=== PATIENT | female | born 1965 ===

== ENCOUNTER 2016-10-26 13:19 | Emergency (ER) | payer MEDICAID ==
[2016-10-26 13:20] VITALS: BMI 44.8
[2016-10-26 13:31] VITALS: RESP 16; TEMP 97.6; O2SAT 100
--- NOTE | 2016-10-26 14:52 | ED PDOC ---
HPI: General Adult Time Seen by Provider: 10/26/16 13:34 Chief Complaint (Nursing): Flu-like Symptoms Chief Complaint (Provider): Joint Pain History Per: Patient History/Exam Limitations: no limitations Onset/Duration Of Symptoms: Days (pain has worsened over the past x3-4 weeks), Intermittent Episodes (persistent for several years) Have you had recent travel within the past 21 days to any of the following countries: [place], [place], [place] or [place]?: No Current Symptoms Are (Timing): Still Present Severity: Moderate Location: shoulders, elbows, and lower back Similar Symptoms Previously: symptoms have been intermittently persistent for several years Recent Trauma: none Additional Complaint(s): Madie Chao is a 51 year old female, with a past medical history of arthritis and hypertension, who presents to the emergency department for the evaluation of chronic joint pain, that the patient has been experiencing intermittently for the past several years. The symptoms have worsened over the past 3 to 4 weeks, prompting her visit to the emergency department. Patient reports pain is greatest in her shoulders, elbows, and lower back. Has previously seen Dr. Patel, a embossed or impressed lettering painter, who prescribed her Percocet for pain (last prescription was given on 09/05/2016); however, she ran out and has since then reportedly been feeling worse. Associated myalgia ("body aches"), a headache, cough, congestion, and chills have also been present for the past 4 days. Denies recent trauma, incontinence, hematuria, dysuria, chest pain, a fever, or abdominal pain. Of note, pain is reported to be consistent with her previous intermittently occurring episodes in the past. Patient is scheduled to see her new embossed or impressed lettering painter, Dr. Foley, on Saturday, but would like medication for her pain prior to being discharged from the ED. PMD: Nikolay Santacruz Jr. Past Medical History Reviewed: Historical Data, Nursing Documentation, Vital Signs Vital Signs: Last Vital Signs Temp 97.6 F 10/26/16 13:22 Pulse 75 10/26/16 15:38 Resp 16 10/26/16 13:22 BP 117/69 10/26/16 15:38 Pulse Ox 100 10/26/16 15:26 - Medical History PMH: Arthritis, Back Problems (chronic pain), Depression, GERD, HTN, Chronic Pain Denies: Chronic Kidney Disease - Surgical History Surgical History: Cholecystectomy (2010) Other surgeries: Dilation and Curettage - Family History Family History: States: Unknown Family Hx - Social History Drugs: Prescription medications (Tramadol) - Home Medications Home Medications: Ambulatory Orders Medication Instructions Recorded Acetaminophen/Oxycodone Hydr 1 tab PO Q8 08/17/14 [Percocet 10/325 mg Tab] Calcium Citrate/Vitamin D3 2 tab PO DAILY 08/17/14 [Citracal Petites 200 mg-250 Iu] Famotidine 20 mg PO DAILY 08/17/14 Lisinopril 20 mg PO DAILY 08/17/14 Cyclobenzaprine [Cyclobenzaprine 10 mg PO Q8 PRN #30 tab 10/26/16 HCl] Meloxicam [Mobic] 1 - 2 tab PO DAILY PRN #30 tab 10/26/16 Tramadol HCl [Ultram] 50 mg PO BID PRN #14 tablet 10/26/16 - Allergies Allergies/Adverse Reactions: Allergies Allergy/AdvReac Type Severity Reaction Status Date / Time No Known Allergies Allergy Verified 04/26/14 14:46 Review of Systems ROS Statement: Except As Marked, All Systems Reviewed And Found Negative Constitutional: Positive for: Chills, Malaise (myalgia, "body aches"). Negative for: Fever ENT: Positive for: Nose Congestion Cardiovascular: Negative for: Chest Pain Respiratory: Positive for: Cough Gastrointestinal: Negative for: Abdominal Pain Genitourinary Female: Negative for: Dysuria, Incontinence, Hematuria Musculoskeletal: Positive for: Shoulder Pain (b/l), Back Pain (lower back, chronic), Other (elbow pain, b/l) Neurological: Positive for: Headache Physical Exam - Reviewed Nursing Documentation Reviewed: Yes Vital Signs Reviewed: Yes - Physical Exam Appears: Positive for: Non-toxic, No Acute Distress Skin: Positive for: Normal Color, Warm, Dry. Negative for: Rash Respiratory: Positive for: Normal Breath Sounds. Negative for: Respiratory Distress Gastrointestinal/Abdominal: Positive for: Normal Exam, Soft. Negative for: Tenderness Back: Positive for: Normal Inspection, Muscle Spasm (minimal b/l lower back). Negative for: L CVA Tenderness, R CVA Tenderness, Vertebral Tenderness Extremity: Positive for: Normal ROM. Negative for: Tenderness, Swelling Neurologic/Psych: Positive for: Alert, Oriented - Laboratory Results Urine POC: Negative Urine dip results: Negative for: Leukocyte Esterase, Blood, Nitrate, Ketones, Glucose, Bilirubin, Protein - ECG O2 Sat by Pulse Oximetry: 100 (RA) Pulse Ox Interpretation: Normal - Progress Re-evaluation Time: 16:04 (Repeat BP: 117/69. Pt. reports moderate pain relief. Instructed to continue lisinopril at home tomorrow. ) Condition: Re-examined, Improving,but remains with symptoms Medical Decision Making Medical Decision Makin:34 Initial Impression: Chronic pain Initial Plan: * Urine * Urine Dip * Flexeril 10 mg PO * Toradol 15 mg IM * Zestril 20 mg PO * Reevaluation Patient was searched on [employer] which shows a past history of a monthly supply of Percocet. Her last prescription was on 09/05/2016. Scribe Attestation: Documented by Jean lCaude Kenny, acting as a scribe for IRLANDA Blanca. Provider Scribe Attestation: All medical record entries made by the Scribe were at my direction and personally dictated by me. I have reviewed the chart and agree that the record accurately reflects my personal performance of the history, physical exam, medical decision making, and the department course for this patient. I have also personally directed, reviewed, and agree with the discharge instructions and disposition. Disposition - Clinical Impression Clinical Impression: Chronic back pain - Patient ED Disposition Is Patient to be Admitted: No - Disposition Referrals: [facility] [Outside] Disposition: Routine/Home Disposition Time: 16:06 Condition: STABLE Prescriptions: Cyclobenzaprine [Cyclobenzaprine HCl] 10 mg PO Q8 PRN #30 tab PRN Reason: Muscle Spasm Meloxicam [Mobic] 1 - 2 tab PO DAILY PRN #30 tab PRN Reason: Pain Tramadol HCl [Ultram] 50 mg PO BID PRN #14 tablet PRN Reason: Other Instructions: Chronic Back Pain (ED) Print Language: YI
[2016-10-26 15:38] VITALS: BP 117/69; PULSE 75
== END 2016-10-26 16:14 | disposition home or self-care (01) ==
LOC: H.ER 13:19
DX: M54.9 Dorsalgia, unspecified (principal); I10 Essential (primary) hypertension

== ENCOUNTER 2017-10-11 10:43 | Emergency (ER) | payer MEDICAID ==
[2017-10-11 10:43] VITALS: BMI 44.8
[2017-10-11 10:54] VITALS: TEMP 97
--- NOTE | 2017-10-11 11:56 | ED PDOC ---
HPI: Female Pain Time Seen by Provider: 10/11/17 10:54 Chief Complaint (Nursing): Abdominal Pain History Per: Patient History/Exam Limitations: no limitations Onset/Duration Of Symptoms: Days (2), Gradual Current Symptoms Are (Timing): Better Severity: Mild Quality Of Discomfort: Dull Associated Symptoms: Urinary Symptoms. denies: Fever, Chills, Nausea, Vomiting Alleviating Factors: None Additional History Per: Patient Abnormal Vaginal Bleeding: No Past Medical History Reviewed: Historical Data, Nursing Documentation, Vital Signs Vital Signs: Last Vital Signs Temp 97 F L 10/11/17 10:51 Pulse 88 10/11/17 10:51 Resp 20 10/11/17 10:51 BP 139/86 10/11/17 10:51 Pulse Ox 98 10/11/17 10:51 - Medical History PMH: Anxiety, Arthritis, Back Problems (chronic pain), Depression, GERD, HTN, Chronic Pain Denies: Chronic Kidney Disease - Surgical History Surgical History: Cholecystectomy (2010) - Family History Family History: States: Unknown Family Hx - Living Arrangements Living Arrangements: With Family - Social History Current smoker - smoking cessation education provided: No - Home Medications Home Medications: Ambulatory Orders Medication Instructions Recorded Acetaminophen/Oxycodone Hydr 1 tab PO Q8 08/17/14 [Percocet 10/325 mg Tab] Calcium Citrate/Vitamin D3 2 tab PO DAILY 08/17/14 [Citracal Petites 200 mg-250 Iu] Famotidine 20 mg PO DAILY 08/17/14 Lisinopril 20 mg PO DAILY 08/17/14 Cyclobenzaprine [Cyclobenzaprine 10 mg PO Q8 PRN #30 tab 10/26/16 HCl] Meloxicam [Mobic] 1 - 2 tab PO DAILY PRN #30 tab 10/26/16 Tramadol HCl [Ultram] 50 mg PO BID PRN #14 tablet 10/26/16 Ibuprofen [Motrin Tab] 600 mg PO QID PRN #30 tab 10/11/17 - Allergies Allergies/Adverse Reactions: Allergies Allergy/AdvReac Type Severity Reaction Status Date / Time No Known Allergies Allergy Verified 10/11/17 10:50 Review of Systems ROS Statement: Except As Marked, All Systems Reviewed And Found Negative Constitutional: Negative for: Fever, Chills Cardiovascular: Negative for: Chest Pain Respiratory: Negative for: Cough, Shortness of Breath Gastrointestinal: Negative for: Nausea, Vomiting, Abdominal Pain Genitourinary Female: Positive for: Dysuria, Hematuria, Other (left flank pain) Physical Exam - Reviewed Nursing Documentation Reviewed: Yes Vital Signs Reviewed: Yes - Physical Exam Appears: Positive for: Uncomfortable Head Exam: Positive for: ATRAUMATIC, NORMAL INSPECTION, NORMOCEPHALIC Eye Exam: Positive for: Normal appearance Neck: Positive for: Normal, Painless ROM, Supple Cardiovascular/Chest: Positive for: Regular Rate, Rhythm, Chest Non Tender. Negative for: Edema, Gallop Respiratory: Positive for: Normal Breath Sounds. Negative for: Decreased Breath Sounds, Accessory Muscle Use Gastrointestinal/Abdominal: Positive for: Normal Exam, Bowel Sounds, Soft. Negative for: Tenderness, Organomegaly, Mass, Distended, Guarding Pelvic Exam: Positive for: External Exam Normal, Speculum Exam Normal, Bimanual Exam Normal, No Cerv. Motion Tender, No Masses, Other (chap by nurse jeevan). Negative for: Active Bleeding, Blood, Cervicitis, Discharge, Lesions, Mass, Tender W/Cervical Motion, Tender Adnexa, Tender Uterus, Ulcers Back: Positive for: Normal Inspection. Negative for: L CVA Tenderness, R CVA Tenderness, Vertebral Tenderness Extremity: Positive for: Normal ROM. Negative for: Tenderness, Pedal Edema, Calf Tenderness, Deformity, Swelling Neurologic/Psych: Positive for: Alert, highway traffic control technician II-XII, Oriented, Mood/Affect (calm) , Gait (steady). Negative for: Motor/Sensory Deficits - Laboratory Results Result Diagrams: 10/11/17 12:09 10/11/17 12:09 - ECG O2 Sat by Pulse Oximetry: 98 Pulse Ox Interpretation: Normal - Progress ED Course And Treament: ct scan neg, advise close f/u on cultures all of pt's questions were answered and pt agree's with plan. Re-evaluation Time: 14:00 Condition: Improved Disposition - Clinical Impression Clinical Impression: Pelvic pain - Patient ED Disposition Is Patient to be Admitted: No Counseled Patient/Family Regarding: Studies Performed, Diagnosis, Need For Followup - Disposition [facility] (3 to 4 days) Disposition: Routine/Home Disposition Time: 14:00 Condition: GOOD Prescriptions: Ibuprofen [Motrin Tab] 600 mg PO QID PRN #30 tab PRN Reason: Pain, Mild (1-3) Instructions: Acute Pelvic Pain (DC) Forms: [facility] (Spanish)
[2017-10-11 12:22] LABS: BASO # 0.1 K/uL (0.0-0.2); EOS # 0.2 K/uL (0.0-0.7); EOS % 2.1 % (0.0-4.0); HEMOGLOBIN 12.9 g/dL (12.0-16.0); LYMPH # 2.8 K/uL (1.0-4.3); LYMPH % 32.1 % (20.0-40.0); MEAN CELL VOLUME 90.8 fl (81.0-99.0); MEAN CORPUSCULAR HEMOGLOBIN 30.5 pg (27.0-31.0); MEAN CORPUSCULAR HGB CONC 33.6 g/dL (33.0-37.0); MEAN PLATELET VOLUME 8.4 fl (7.2-11.7); MONO # 0.6 K/uL (0.0-0.8); MONO % 6.6 % (0.0-10.0); NEUT # 5.1 K/uL (1.8-7.0); NEUT % 58.2 % (50.0-75.0); NRBC % 0.1 % (0.0-0.0); RBC 4.21 Mil/uL (3.80-5.20); RED CELL DISTRIBUTION WIDTH 12.9 % (11.5-14.5); WHITE BLOOD COUNT 8.8 K/uL (4.8-10.8)
[2017-10-11 12:29] LABS: SQUAMOUS EPITHIAL 5 /hpf (0-5); URINE BILIRUBIN NEGATIVE (NEGATIVE); URINE BLOOD NEGATIVE (NEGATIVE); URINE CLARITY SLIGHTY-CLOUDY (Clear); URINE COLOR YELLOW (YELLOW); URINE GLUCOSE (UA) NEG (Normal); URINE LEUKOCYTE ESTERASE NEG Leu/uL (Negative); URINE PROTEIN NEGATIVE (NEGATIVE)
[2017-10-11 12:33] LABS: ALB/GLOB RATIO 1.2 (1.0-2.1); ALBUMIN 4.2 g/dL (3.5-5.0); ALT/SGPT 28 U/L (9-52); AMYLASE 65 U/L (30-110); AST/SGOT 23 U/L (14-36); BLOOD UREA NITROGEN 18 mg/dl (7-17); CALCIUM 9.4 mg/dL (8.4-10.2); GFR AFRICAN-AMERICAN > 60; GFR NON-AFRICAN AMERICAN > 60; LIPASE 42 U/L (23-300)
--- NOTE | 2017-10-11 13:06 | CT ---
PROCEDURE: CT Abdomen and Pelvis without intravenous contrast HISTORY: l lfank pain r/o stone COMPARISON: CT scan of the abdomen and pelvis dated 10/11/2013. TECHNIQUE: Contiguous images were obtained from the domes of the diaphragms to the upper thighs without the administration of intravenous contrast. Oral contrast was not administered. Radiation dose: Total exam DLP = 1063.5 mGy-cm. This CT exam was performed using one or more of the following dose reduction techniques: Automated exposure control, adjustment of the mA and/or kV according to patient size, and/or use of iterative reconstruction technique. FINDINGS: LOWER THORAX: Unremarkable. LIVER: Unremarkable. No gross lesion or ductal dilatation. GALLBLADDER AND BILE DUCTS: Prior cholecystectomy with surgical clips in place. PANCREAS: Unremarkable. No gross lesion or ductal dilatation. SPLEEN: Unremarkable. ADRENALS: Unremarkable. No mass. KIDNEYS AND URETERS: Nonobstructive right upper pole calculi measuring 1.0 x 0.6 cm. No hydronephrosis. No solid mass. VASCULATURE: Unremarkable. No aortic aneurysm. BOWEL: Unremarkable. No obstruction. No gross mural thickening. APPENDIX: Unremarkable. Normal appendix. PERITONEUM: Unremarkable. No free fluid. No free air. LYMPH NODES: Unremarkable. No enlarged lymph nodes. BLADDER: Unremarkable. REPRODUCTIVE: Unremarkable. BONES: No acute fracture. OTHER FINDINGS: None. IMPRESSION: Nonobstructive right upper pole calculi measuring up to 1.0 cm. No left-sided urolithiasis or evidence of recently passed genitourinary calculus.
[2017-10-11 14:50] VITALS: BP 113/86; PULSE 78; RESP 18; O2SAT 99
== END 2017-10-11 14:50 | disposition home or self-care (01) ==
LOC: H.ER 10:43
DX: R10.2 Pelvic and perineal pain (principal); A49.1 Streptococcal infection, unspecified site; F32.9 Major depressive disorder, single episode, unspecified; F41.9 Anxiety disorder, unspecified; G89.29 Other chronic pain; I10 Essential (primary) hypertension; K21.9 Gastro-esophageal reflux disease without esophagitis

== ENCOUNTER 2018-10-08 11:58 | Emergency (ER) | payer MEDICAID ==
[2018-10-08 11:58] VITALS: BMI 44.8
[2018-10-08 13:43] LABS: BASO # 0.1 K/uL (0.0-0.2); BASO % 0.7 % (0.0-2.0); EOS # 0.1 K/uL (0.0-0.7); EOS % 1.3 % (0.0-4.0); HEMOGLOBIN 14.1 g/dL (12.0-16.0); LYMPH # 2.8 K/uL (1.0-4.3); LYMPH % 30.5 % (20.0-40.0); MEAN CELL VOLUME 90.9 fl (81.0-99.0); MEAN CORPUSCULAR HEMOGLOBIN 30.5 pg (27.0-31.0); MEAN CORPUSCULAR HGB CONC 33.6 g/dL (33.0-37.0); MEAN PLATELET VOLUME 8.6 fl (7.2-11.7); MONO # 0.7 K/uL (0.0-0.8); MONO % 7.4 % (0.0-10.0); NEUT # 5.5 K/uL (1.8-7.0); NEUT % 60.1 % (50.0-75.0); NRBC % 0.1 % (0.0-0.0); RBC 4.61 Mil/uL (3.80-5.20); RED CELL DISTRIBUTION WIDTH 13.1 % (11.5-14.5); WHITE BLOOD COUNT 9.2 K/uL (4.8-10.8)
--- NOTE | 2018-10-08 13:56 | ED PDOC ---
HPI: Female Pain Chief Complaint (Provider): Female Genitourinary History Per: Patient History/Exam Limitations: no limitations Onset/Duration Of Symptoms: Days Current Symptoms Are (Timing): Still Present Associated Symptoms: Urinary Symptoms Additional Complaint(s): 53 year old female with a past medical history of hypertension, arthritis, and anxiety who is presenting to the ED for evaluation of reoccurring UTI ongoing for over a week. Patient states that she is now on her 3rd different antibiotic for this UTI. She reports that she was initially on Metronidazole, then switched to Sulfamethoxazole, and 2 days ago was called by her doctor regarding her cultures that had a sensitivity to Ampicillin and was started on that. Patient admits that the UTI symptoms are worsening and states that she was told by PMD to come to the ED for quicker bloodwork and imaging. She offers no other medical complaints at this time. PMD: Norma Savage <Jasmina Gardner - Last Filed: 10/08/18 15:05> <Jaiden Montgomery III - Last Filed: 10/08/18 15:16> Time Seen by Provider: 10/08/18 13:00 Chief Complaint (Nursing): Female Genitourinary Past Medical History Reviewed: Historical Data, Nursing Documentation, Vital Signs Vital Signs: Last Vital Signs Temp 97.8 F 10/08/18 12:21 Pulse 91 H 10/08/18 12:21 Resp 16 10/08/18 12:21 BP 111/80 10/08/18 12:21 Pulse Ox 99 10/08/18 12:21 - Medical History PMH: Anxiety, Arthritis, Back Problems (chronic pain), Depression, GERD, HTN, Chronic Pain Denies: Chronic Kidney Disease - Surgical History Surgical History: Cholecystectomy (2010) - Family History Family History: States: Unknown Family Hx - Social History Current smoker - smoking cessation education provided: No Alcohol: None Drugs: Denies <Jasmina Gardner - Last Filed: 10/08/18 15:05> Vital Signs: Last Vital Signs Temp 97.8 F 10/08/18 12:21 Pulse 91 H 10/08/18 12:21 Resp 16 10/08/18 12:21 BP 111/80 10/08/18 12:21 Pulse Ox 99 10/08/18 15:06 <Jaiden Montgomery III - Last Filed: 10/08/18 15:16> - Home Medications Home Medications: Ambulatory Orders Medication Instructions Recorded Acetaminophen/Oxycodone Hydr 1 tab PO Q8 08/17/14 [Percocet 10/325 mg Tab] Calcium Citrate/Vitamin D3 2 tab PO DAILY 08/17/14 [Citracal Petites 200 mg-250 Iu] Famotidine 20 mg PO DAILY 08/17/14 Lisinopril 20 mg PO DAILY 08/17/14 Cyclobenzaprine [Cyclobenzaprine 10 mg PO Q8 PRN #30 tab 10/26/16 HCl] Meloxicam [Mobic] 1 - 2 tab PO DAILY PRN #30 tab 10/26/16 Tramadol HCl [Ultram] 50 mg PO BID PRN #14 tablet 10/26/16 Ibuprofen [Motrin Tab] 600 mg PO QID PRN #30 tab 10/11/17 Amoxicillin 500 mg PO TID #21 tablet 10/13/17 - Allergies Allergies/Adverse Reactions: Allergies Allergy/AdvReac Type Severity Reaction Status Date / Time No Known Allergies Allergy Verified 10/08/18 12:22 Review of Systems ROS Statement: Except As Marked, All Systems Reviewed And Found Negative Gastrointestinal: Positive for: Abdominal Pain (suprapubic) Genitourinary Female: Positive for: Dysuria, Pelvic Pain <Jasmina Gardner - Last Filed: 10/08/18 15:05> Physical Exam - Reviewed Nursing Documentation Reviewed: Yes Vital Signs Reviewed: Yes - Physical Exam Appears: Positive for: Non-toxic, No Acute Distress Head Exam: Positive for: ATRAUMATIC, NORMAL INSPECTION, NORMOCEPHALIC Skin: Positive for: Normal Color, Warm, DRY Eye Exam: Positive for: Normal appearance Neck: Positive for: Normal Cardiovascular/Chest: Positive for: Regular Rate, Rhythm. Negative for: Murmur Respiratory: Positive for: Normal Breath Sounds. Negative for: Respiratory Distress Gastrointestinal/Abdominal: Positive for: Soft, Tenderness (suprapubic ). Negative for: Other (flank tenderness) Back: Positive for: Normal Inspection. Negative for: L CVA Tenderness, R CVA Tenderness, Vertebral Tenderness Extremity: Positive for: Normal ROM. Negative for: Deformity, Swelling Neurological/Psych: Positive for: Awake, Alert, Normal Tone, Oriented. Negative for: Motor/Sensory Deficits <Jasmina Gardner - Last Filed: 10/08/18 15:05> - Laboratory Results Result Diagrams: 10/08/18 13:36 10/08/18 13:36 - ECG O2 Sat by Pulse Oximetry: 99 (RA) Pulse Ox Interpretation: Normal <Jasmina Gardner - Last Filed: 10/08/18 15:05> - Laboratory Results Result Diagrams: 10/08/18 13:36 10/08/18 13:36 <Jaiden Montgomery III - Last Filed: 10/08/18 15:16> Medical Decision Making Medical Decision Making: Time: 13:36 A/P: Workup for reoccurring UTI vs. other lower abdominal pathology --CT Abd/pelvis with contrast --Labs, UA, urine culture --Reassess patient 15:00 patient who is comfortable at this time will be signed out to Dr. Montgomery pending UA and CT results. Scribe Attestation: Documented by Carol Mead, acting as a scribe for Jasmina Gardner MD. Provider Scribe Attestation: All medical record entries made by the Scribe were at my direction and personally dictated by me. I have reviewed the chart and agree that the record accurately reflects my personal performance of the history, physical exam, medical decision making, and the department course for this patient. I have also personally directed, reviewed, and agree with the discharge instructions and disposition. <Jasmina Gardner - Last Filed: 10/08/18 15:05> Disposition <Jasmina Gardner - Last Filed: 10/08/18 15:05> <Jaiden Montgomery III - Last Filed: 10/08/18 15:16> - Disposition Forms: [employer] (Kazakh)
[2018-10-08 13:57] LABS: BLOOD UREA NITROGEN 19 mg/dl (7-17); GFR NON-AFRICAN AMERICAN > 60
[2018-10-08] MEDS ORDERED: Iohexol 300 100 ML IJ ONE (14:22)
--- NOTE | 2018-10-08 15:22 | ED PDOC ---
- Laboratory Results Result Diagrams: 10/08/18 13:36 10/08/18 13:36 - ECG O2 Sat by Pulse Oximetry: 99 (RA) Pulse Ox Interpretation: Normal Medical Decision Making Medical Decision Making: Time: 15:00 Patient presenting for reoccurring UTI was signed out to me by Dr. Gardner pending CT results and disposition. CT results discussed w patient, including need for US for cystic structure in adnexa. US was ordered today but she declined as states awaiting her outside. Recommended to complete as outpatient for r/o enlarging mass/ malignancy. She was given a copy of CT report to bring to PMD Dr Savage or her [employer]. She denied current pain on discharge, pyridium given for urinary symptoms, given now completed 3 rounds Abx, no signs sepsis, await urine culture before initiating further Abx, and may need urology eval as outpatient, referred to Dr Sutton concert pianist. She states she had recent [employer] exam including pap smear. -------- --------- Scribe Attestation: Documented by Carol Mead, acting as a scribe for Jaiden Montgomery DO. Provider Scribe Attestation: All medical record entries made by the Scribe were at my direction and personally dictated by me. I have reviewed the chart and agree that the record accurately reflects my personal performance of the history, physical exam, medical decision making, and the department course for this patient. I have also personally directed, reviewed, and agree with the discharge instructions and disposition. Disposition - Clinical Impression Clinical Impression: Urinary tract infection, Ovarian cystic mass - POA Present On Arrival: None - Disposition Referrals: Zan Sutton MD [Medical Doctor] - Disposition: Routine/Home Disposition Time: 17:05 Condition: STABLE Additional Instructions: Recommend outpatient pelvis ultrasound to better evaluate large cystic structure in L adnexa. This is important to followup with. Take pyridium 2x daily until urine culture returns, your urine will turn orange in color. Drink plenty of fluids. Return to ER for any fever, back pain, worse symptoms or any concern/. Prescriptions: Phenazopyridine HCl [Pyridium] 100 mg PO BID #10 tablet Instructions: Urinary Tract Infection, Adult (DC), Ovarian Cyst Removal, Laparoscopic Surgery, Ovarian Cyst (DC) Forms: [facility] (Serbian)
[2018-10-08 15:36] LABS: RENAL EPITHELIAL 2 /hpf (0-3); SQUAMOUS EPITHIAL 5 /hpf (0-5); URINE BACTERIA RARE (<OCC); URINE BILIRUBIN NEGATIVE (NEGATIVE); URINE BLOOD NEGATIVE (NEGATIVE); URINE CLARITY SLIGHTY-CLOUDY (Clear); URINE COLOR YELLOW (YELLOW); URINE GLUCOSE (UA) NEG (NEGATIVE); URINE LEUKOCYTE ESTERASE MOD Leu/uL (Negative); URINE PROTEIN NEGATIVE (NEGATIVE); URINE UROBILINOGEN 0.2-1.0 mg/dL (0.2-1.0)
--- NOTE | 2018-10-08 16:49 | CT ---
Date of service: 10/08/2018 PROCEDURE: CT Abdomen and Pelvis with contrast HISTORY: lower abdominal pressure and recurrent UTI COMPARISON: 10/11/2017 TECHNIQUE: Contrast dose: 95 cc Omnipaque 300 Radiation dose: Total exam DLP = 826.61 mGy-cm. This CT exam was performed using one or more of the following dose reduction techniques: Automated exposure control, adjustment of the mA and/or kV according to patient size, and/or use of iterative reconstruction technique. FINDINGS: LOWER THORAX: Unremarkable. LIVER: Unremarkable. No gross lesion or ductal dilatation. GALLBLADDER AND BILE DUCTS: Cholecystectomy-clips and mild extrahepatic bile duct dilatation similar in appearance PANCREAS: Unremarkable. No gross lesion or ductal dilatation. SPLEEN: Unremarkable. ADRENALS: Unremarkable. No mass. KIDNEYS AND URETERS: Medial right mid to upper renal pole nonobstructing calculus burden overall estimate 10-11 x 6 mm in size. This appears similar. Symmetrical renal function. No renal masses seen. No hydronephrosis seen. No hydroureter. No uro ileal enhancement of the ureters apparent. Perirenal inflammatory changes. VASCULATURE: The pelvic phleboliths. No aortic aneurysm. No aortic atherosclerotic calcification or mural plaque present. BOWEL: Unremarkable. No obstruction. No gross mural thickening. APPENDIX: Normal appendix. PERITONEUM: Unremarkable. No free fluid. No free air. LYMPH NODES: Unremarkable. No enlarged lymph nodes. BLADDER: Unremarkable appearing bladder apart from a moderately distended state. REPRODUCTIVE: Unremarkable uterus. Probable tiny right ovarian follicular cystic changes. High anterior left adnexal hypodensity-a left ovarian paraovarian cyst are some considerations. Measuring 4.3 x 3.0 by approximately 2.2 cm in size. This is an interval change since the prior exam. Conceivably an enlarging peritoneal inclusion cyst is another consideration. This has increased in size since the prior exam. BONES: No acute fracture. OTHER FINDINGS: None. IMPRESSION: No hydronephrosis or hydroureter. No obstructing urolithiasis. The 10 to 11 mm calculus burden over the right medial mid to upper pole parenchyma is as before. No perirenal stranding. No urothelial ureteral enhancement seen. Unremarkable bladder apart from moderately distended state. No renal masses seen. Bilateral symmetrical renal function noted Interval enlargement of a anterior and superior left adnexal hypodense mass resembling a cystic structure. This is an interval change with the prior CT. Consider pelvic ultrasound to further evaluate. Other findings as above.
[2018-10-08 17:37] VITALS: BP 130/74; PULSE 90; RESP 18; TEMP 97.6
[2018-10-08 18:15] VITALS: O2SAT 99
== END 2018-10-08 17:34 | disposition home or self-care (01) ==
LOC: H.ER 11:58
DX: N39.0 Urinary tract infection, site not specified (principal); N83.209 Unspecified ovarian cyst, unspecified side; Z87.440 Personal history of urinary (tract) infections; K21.9 Gastro-esophageal reflux disease without esophagitis; I10 Essential (primary) hypertension; G89.29 Other chronic pain; Z86.59 Personal history of other mental and behavioral disorders
CPT/HCPCS: 74177; 80048; 81003; 85025; 87086; 99284; Q9967

== ENCOUNTER 2018-10-23 12:01 | Emergency (ER) | payer MEDICAID ==
[2018-10-23 12:01] VITALS: BMI 44.8
[2018-10-23 12:51] VITALS: O2SAT 98
[2018-10-23 13:47] LABS: ALB/GLOB RATIO 1.3 (1.0-2.1); ALBUMIN 4.7 g/dL (3.5-5.0); ALT/SGPT 43 U/L (9-52); AST/SGOT 35 U/L (14-36); BASO # 0.1 K/uL (0.0-0.2); BASO % 1.3 % (0.0-2.0); BLOOD UREA NITROGEN 21 mg/dl (7-17); EOS # 0.1 K/uL (0.0-0.7); EOS % 1.8 % (0.0-4.0); GFR NON-AFRICAN AMERICAN > 60; HEMOGLOBIN 13.7 g/dL (12.0-16.0); LYMPH # 2.6 K/uL (1.0-4.3); LYMPH % 35.7 % (20.0-40.0); MEAN CELL VOLUME 91.2 fl (81.0-99.0); MEAN CORPUSCULAR HEMOGLOBIN 30.3 pg (27.0-31.0); MEAN CORPUSCULAR HGB CONC 33.3 g/dL (33.0-37.0); MEAN PLATELET VOLUME 9.4 fl (7.2-11.7); MONO # 0.6 K/uL (0.0-0.8); MONO % 7.6 % (0.0-10.0); NEUT # 3.9 K/uL (1.8-7.0); NEUT % 53.6 % (50.0-75.0); NRBC % 0.3 % (0.0-0.0); RBC 4.51 Mil/uL (3.80-5.20); RED CELL DISTRIBUTION WIDTH 13.1 % (11.5-14.5); WHITE BLOOD COUNT 7.3 K/uL (4.8-10.8)
[2018-10-23 14:17] LABS: SQUAMOUS EPITHIAL 3 /hpf (0-5); URINE BILIRUBIN NEGATIVE (NEGATIVE); URINE BLOOD NEGATIVE (NEGATIVE); URINE CLARITY SLIGHTY-CLOUDY (Clear); URINE COLOR YELLOW (YELLOW); URINE GLUCOSE (UA) NEG (NEGATIVE); URINE LEUKOCYTE ESTERASE SMALL Leu/uL (Negative); URINE PROTEIN NEGATIVE (NEGATIVE); URINE UROBILINOGEN 0.2-1.0 mg/dL (0.2-1.0)
--- NOTE | 2018-10-23 14:43 | ED PDOC ---
HPI: Abdomen Time Seen by Provider: 10/23/18 12:58 Chief Complaint (Nursing): Abdominal Pain History Per: Patient History/Exam Limitations: no limitations Onset/Duration Of Symptoms: Other (2 weeks) Outside of [place] travel?: No Current Symptoms Are (Timing): Still Present Severity: Moderate Pain Scale Rating Of: 4 Location Of Pain/Discomfort: LLQ Quality Of Discomfort: Dull Associated Symptoms: Urinary Symptoms. denies: Fever, Chills, Nausea, Vomiting, Diarrhea Exacerbating Factors: None Alleviating Factors: None Last Bowel Movement: Today Additional History Per: Patient Additional Complaint(s): Patient presenting for left pelvic pain and LLQ pain for 2weeks. NO other complains. Pain is constant. Patient seen here on 10/[address] abdomen that showed ovarian cysts but no other acute findings. Patient seen her CLINICAL LIAISON who recommended Pelvic US. Abnormal Vaginal Bleeding: No Past Medical History Reviewed: Historical Data, Nursing Documentation, Vital Signs Vital Signs: Last Vital Signs Temp 97 F L 10/23/18 12:48 Pulse 90 10/23/18 12:48 Resp 22 10/23/18 12:48 BP 116/85 10/23/18 12:48 Pulse Ox 98 10/23/18 12:48 - Medical History PMH: Anxiety, Arthritis, Back Problems (chronic pain), Depression, GERD, HTN, Chronic Pain Denies: Chronic Kidney Disease - Surgical History Surgical History: Cholecystectomy (2010) - Family History Family History: States: Unknown Family Hx - Home Medications Home Medications: Ambulatory Orders Medication Instructions Recorded Acetaminophen/Oxycodone Hydr 1 tab PO Q8 08/17/14 [Percocet 10/325 mg Tab] Calcium Citrate/Vitamin D3 2 tab PO DAILY 08/17/14 [Citracal Petites 200 mg-250 Iu] Famotidine 20 mg PO DAILY 08/17/14 Lisinopril 20 mg PO DAILY 08/17/14 Cyclobenzaprine [Cyclobenzaprine 10 mg PO Q8 PRN #30 tab 10/26/16 HCl] Meloxicam [Mobic] 1 - 2 tab PO DAILY PRN #30 tab 10/26/16 Tramadol HCl [Ultram] 50 mg PO BID PRN #14 tablet 10/26/16 Ibuprofen [Motrin Tab] 600 mg PO QID PRN #30 tab 10/11/17 Amoxicillin 500 mg PO TID #21 tablet 10/13/17 Phenazopyridine HCl [Pyridium] 100 mg PO BID #10 tablet 10/08/18 Doxycycline Hyclate 100 mg PO BID #20 capsule 10/23/18 - Allergies Allergies/Adverse Reactions: Allergies Allergy/AdvReac Type Severity Reaction Status Date / Time No Known Allergies Allergy Verified 10/08/18 12:22 Review of Systems ROS Statement: Except As Marked, All Systems Reviewed And Found Negative Genitourinary Female: Positive for: Pelvic Pain Musculoskeletal: Positive for: Back Pain Physical Exam - Reviewed Nursing Documentation Reviewed: Yes Vital Signs Reviewed: Yes - Physical Exam Appears: Positive for: Non-toxic, No Acute Distress Head Exam: Positive for: ATRAUMATIC, NORMAL INSPECTION Skin: Positive for: Normal Color, Warm Eye Exam: Positive for: EOMI ENT: Positive for: Normal ENT Inspection Neck: Positive for: Painless ROM Cardiovascular/Chest: Positive for: Regular Rate, Rhythm Respiratory: Positive for: Normal Breath Sounds Gastrointestinal/Abdominal: Positive for: Soft, Tenderness (Left pelvic ). Negative for: Distended, Guarding Extremity: Positive for: Normal ROM Neurological/Psych: Positive for: Awake, Alert, Oriented - Laboratory Results Result Diagrams: 10/23/18 13:24 10/23/18 13:24 Lab Results: Total Bilirubin 0.5 mg/dl (0.2-1.3) 10/23/18 13:24 AST 35 U/L (14-36) 10/23/18 13:24 ALT 43 U/L (9-52) 10/23/18 13:24 Alkaline Phosphatase 61 U/L (38-126) 10/23/18 13:24 Total Protein 8.4 G/DL (6.3-8.2) H 10/23/18 13:24 Albumin 4.7 g/dL (3.5-5.0) 10/23/18 13:24 Globulin 3.7 gm/dL (2.2-3.9) 10/23/18 13:24 Albumin/Globulin Ratio 1.3 (1.0-2.1) 10/23/18 13:24 Urine Color Yellow (YELLOW) 10/23/18 13:13 Urine Clarity Slighty-cloudy (Clear) 10/23/18 13:13 Urine pH 6.0 (5.0-8.0) 10/23/18 13:13 Ur Specific [place] 1.017 (1.003-1.030) 10/23/18 13:13 Urine Protein Negative mg/dL (NEGATIVE) 10/23/18 13:13 Urine Glucose (UA) Neg mg/dL (NEGATIVE) 10/23/18 13:13 Urine Ketones Negative mg/dL (NEGATIVE) 10/23/18 13:13 Urine Blood Negative (NEGATIVE) 10/23/18 13:13 Urine Nitrate Negative (NEGATIVE) 10/23/18 13:13 Urine Bilirubin Negative (NEGATIVE) 10/23/18 13:13 Urine Urobilinogen 0.2-1.0 mg/dL (0.2-1.0) 10/23/18 13:13 Ur Leukocyte Esterase Small Emi/uL (Negative) 10/23/18 13:13 Urine RBC (Auto) 2 /hpf (0-3) 10/23/18 13:13 Urine Microscopic WBC 2 /hpf (0-5) 10/23/18 13:13 Ur Squamous Epith Cells 3 /hpf (0-5) 10/23/18 13:13 - ECG O2 Sat by Pulse Oximetry: 98 Medical Decision Making Medical Decision Making: Impression Left pelvic pain Differential Ovarian cyst, ovarian torsion, UTI Plan Labs Pelvic US Toradol IV reassess 1549 US FINDINGS: UTERUS: Measures 4.2 x 5.4 x 8.5 cm. Heterogeneous echo characteristics. Submucosal fibroid to the right of the midline 3.5 x 2.8 x 3.1 cm. Stable finding ENDOMETRIUM: Obscured by the adjacent uterine fibroid. CERVIX: No cervical abnormality identified. RIGHT OVARY: Measures 1.4 x 2.4 x 2.8 cm. No solid mass. Normal flow. LEFT OVARY: Measures 2 x 1.5 x 2.1 cm. No solid mass. Normal flow. Cystic structure adjacent to the left adnexa, finding seen on recent CTs and remote ultrasounds. The overall appearance suggests tubo-ovarian abscess/hydrosalpinx. FREE FLUID: No significant free fluid noted. OTHER FINDINGS: None. IMPRESSION: Stable uterine fibroid. Nondiagnostic endometrial echo complex. Unremarkable right ovary. Stable cystic structure likely hydrosalpinx on the left. CT Abd/Pelvis from 10/08 for reference FINDINGS: LOWER THORAX: Unremarkable. LIVER: Unremarkable. No gross lesion or ductal dilatation. GALLBLADDER AND BILE DUCTS: Cholecystectomy-clips and mild extrahepatic bile duct dilatation similar in appearance PANCREAS: Unremarkable. No gross lesion or ductal dilatation. SPLEEN: Unremarkable. ADRENALS: Unremarkable. No mass. KIDNEYS AND URETERS: Medial right mid to upper renal pole nonobstructing calculus burden overall estimate 10-11 x 6 mm in size. This appears similar. Symmetrical renal function. No renal masses seen. No hydronephrosis seen. No hydroureter. No uro ileal enhancement of the ureters apparent. Perirenal inflammatory changes. VASCULATURE: The pelvic phleboliths. No aortic aneurysm. No aortic atherosclerotic calcification or mural plaque present. BOWEL: Unremarkable. No obstruction. No gross mural thickening. APPENDIX: Normal appendix. PERITONEUM: Unremarkable. No free fluid. No free air. LYMPH NODES: Unremarkable. No enlarged lymph nodes. BLADDER: Unremarkable appearing bladder apart from a moderately distended state. REPRODUCTIVE: Unremarkable uterus. Probable tiny right ovarian follicular cystic changes. High anterior left adnexal hypodensity-a left ovarian paraovarian cyst are some considerations. Measuring 4.3 x 3.0 by approximately 2.2 cm in size. This is an interval change since the prior exam. Conceivably an enlarging peritoneal inclusion cyst is another consideration. This has increased in size since the prior exam. BONES: No acute fracture. OTHER FINDINGS: None. IMPRESSION: No hydronephrosis or hydroureter. No obstructing urolithiasis. The 10 to 11 mm calculus burden over the right medial mid to upper pole parenchyma is as before. No perirenal stranding. No urothelial ureteral enhancement seen. Unremarkable bladder apart from moderately distended state. No renal masses seen. Bilateral symmetrical renal function noted Interval enlargement of a anterior and superior left adnexal hypodense mass resembling a cystic structure. This is an interval change with the prior CT. Consider pelvic ultrasound to further evaluate. [address] Staples who recommends rocephine IM in ED and outpatient doxicyclin and follow up with CLINICAL LIAISON within 2-3 days. Disposition - Clinical Impression Clinical Impression: Abdominal pain in female, Hydrosalpinx - Patient ED Disposition Is Patient to be Admitted: No Doctor Will See Patient In The: Office Counseled Patient/Family Regarding: Studies Performed, Diagnosis, Need For Followup - Disposition Referrals: Nick Rodriguez MD [Staff Provider] - Disposition: Routine/Home Disposition Time: 16:33 Condition: GOOD Additional Instructions: BEREKET GOODRICH, thank you for letting us take care of you today. Your provider was Kaylan Cloud MD and you were treated for ABD PAIN. The emergency medical care you received today was directed at your acute symptoms. If you were prescribed any medication, please fill it and take as directed. It may take several days for your symptoms to resolve. Return to the Emergency Department if your symptoms worsen, do not improve, or if you have any other problems. Please contact your doctor or call one of the physicians/clinics you have been referred to that are listed on the Patient Visit Information form that is included in your discharge packet. Bring any paperwork you were given at discharge with you along with any medications you are taking to your follow up visit. Our treatment cannot replace ongoing medical care by a primary care provider outside of the emergency department. Thank you for allowing the [facility] team to be part of your care today. If you had an X-Ray or CT scan: A Radiologist will review the ED reading if any change in treatment is needed we will contact you. If you had a blood, urine, or wound culture: It will take several days for the results, if any change in treatment is needed we will contact you. Prescriptions: Doxycycline Hyclate 100 mg PO BID #20 capsule Instructions: Pelvic Inflammatory Disease
--- NOTE | 2018-10-23 16:02 | US ---
Date of service: 10/23/2018 HISTORY: left pelvic pain hx of ovarian cyst COMPARISON: 11/13/2013. Pelvic ultrasound 10/08/2018. CT abdomen and pelvis. TECHNIQUE: Transabdominal, transvaginal. Real -time technique with 2D, duplex and color Doppler. FINDINGS: UTERUS: Measures 4.2 x 5.4 x 8.5 cm. Heterogeneous echo characteristics. Submucosal fibroid to the right of the midline 3.5 x 2.8 x 3.1 cm. Stable finding ENDOMETRIUM: Obscured by the adjacent uterine fibroid. CERVIX: No cervical abnormality identified. RIGHT OVARY: Measures 1.4 x 2.4 x 2.8 cm. No solid mass. Normal flow. LEFT OVARY: Measures 2 x 1.5 x 2.1 cm. No solid mass. Normal flow. Cystic structure adjacent to the left adnexa, finding seen on recent CTs and remote ultrasounds. The overall appearance suggests tubo-ovarian abscess/hydrosalpinx. FREE FLUID: No significant free fluid noted. OTHER FINDINGS: None. IMPRESSION: Stable uterine fibroid. Nondiagnostic endometrial echo complex. Unremarkable right ovary. Stable cystic structure likely hydrosalpinx on the left.
[2018-10-23] MEDS ORDERED: cefTRIAXone (Rocephin) 250 mg Inj IM ONE (16:36)
[2018-10-23] MEDS ORDERED: Sterile Water 10 ML IV ONE (17:16)
[2018-10-23] MEDS ORDERED: cefTRIAXone (Rocephin) 250 mg Inj ONE (17:17)
[2018-10-23 17:25] VITALS: BP 118/77; PULSE 76; RESP 18; TEMP 97.9
== END 2018-10-23 17:57 | disposition home or self-care (01) ==
LOC: H.ER 12:01
DX: R10.32 Left lower quadrant pain (principal); N70.11 Chronic salpingitis; D25.9 Leiomyoma of uterus, unspecified; N83.209 Unspecified ovarian cyst, unspecified side
CPT/HCPCS: 76830; 76856; 80053; 81003; 81025; 85025; 96372; 96374; 99284; J0696; J1885